=== PATIENT | female | born 2000 | race Hispanic/Latino ===

== ENCOUNTER 2019-12-03 22:01 | Emergency (ER) | payer OTHER ==
[~2019-12-03] VITALS: Ht 152.4 cm; Wt 51.5 kg
[2019-12-03] MEDS ORDERED: HUMA75IN2 SC (22:08)
[2019-12-03] MEDS ORDERED: INSURSD SC (22:08)
[2019-12-03 22:32] LABS: URINE PREG TEST NEGATIVE (NEGATIVE)
[2019-12-04] MEDS ORDERED: PYRI1TAB5 PO (00:51)
[2019-12-04] MEDS ORDERED: CIPR-249 PO (00:51)
[2019-12-04 00:56] VITALS: BP 100/61
[2019-12-04] MEDS ORDERED: PHENAZOPYRIDINE 100 MG TAB PO ONE (01:00)
[2019-12-04] MEDS ORDERED: CIPROFLOXACIN 500MG TABLET PO ONE (01:00)
== END 2019-12-04 00:58 | disposition home or self-care (01) ==
LOC: M ED 22:01
DX: N39.0 Urinary tract infection, site not specified (principal); E10.65 Type 1 diabetes mellitus with hyperglycemia; Z79.899 Other long term (current) drug therapy

== ENCOUNTER 2020-02-25 09:32 | Emergency (ER) | payer OTHER ==
[~2020-02-25] VITALS: Ht 152.4 cm; Wt 51.3 kg
[~2020-02-25 09:32] MED LIST: CIPR-249 PO; HUMA75IN2 SC; INSURSD SC; PYRI1TAB5 PO
[2020-02-25 11:10] LABS: BASO # 0.1 10^3/uL (0.0-0.2); BASO % 0.8 % (0.0-1.0); EOS # 0.1 10^3/uL (0.0-0.5); EOS % 0.5 % (0.0-3.0); HEMATOCRIT 39.7 % (36.0-47.0); HEMOGLOBIN 13.6 g/dl (12.0-15.5); LYMPH # 2.4 10^3/uL (1.5-5.0); LYMPH % 24.2 % (24.0-44.0); MEAN CORPUSCULAR HEMOGLOBIN 31.4 pg (27.0-33.0); MEAN CORPUSCULAR HGB CONC 34.3 g/dl (32.0-36.5); MEAN CORPUSCULAR VOLUME 91.7 fl (80.0-96.0); MONO # 0.5 10^3/uL (0.0-0.8); MONO % 4.6 % (0.0-5.0); NEUTROPHILS # 6.9 10^3/uL (1.5-8.5); NEUTROPHILS % 69.7 % (36.0-66.0); PLATELET COUNT, AUTOMATED 464 10^3/uL (150-450); RED BLOOD COUNT 4.33 10^6/uL (4.00-5.40); WHITE BLOOD COUNT 9.9 10^3/uL (4.0-10.0)
[2020-02-25 11:23] LABS: BILIRUBIN, URINE MANUAL OBSCURED (NEGATIVE); GLUCOSE, URINE (UA) MANUAL NEGATIVE (NEGATIVE); KETONE, URINE MANUAL OBSCURED mg/dL (NEGATIVE); UROBILINOGEN, URINE MANUAL OBSCURED mg/dl (NORMAL)
[2020-02-25 11:29] LABS: BLOOD UREA NITROGEN 7 MG/DL (7-18); CARBON DIOXIDE LEVEL 27 MEQ/L (21-32); CHLORIDE LEVEL 106 MEQ/L (98-107); CREATININE FOR GFR 0.64 MG/DL (0.55-1.30); GLOMERULAR FILTRATION RATE > 60.0 (>60); GLUCOSE, FASTING 62 MG/DL (70-100); POTASSIUM SERUM 3.7 MEQ/L (3.5-5.1); SODIUM LEVEL 138 MEQ/L (136-145)
[2020-02-25 11:31] LABS: SQUAMOUS EPITHELIAL CELL URINE MOD AMOUNT /hpf (SMALL AMT)
[2020-02-25 11:32] LABS: HCG, SERUM QUALITATIVE NEGATIVE (NEGATIVE)
[2020-02-25 11:32] LABS: BACTERIA, URINE MOD AMOUNT; HYALINE CAST, URINE NONE SEEN /lpf (0-1); MUCUS, URINE SMALL AMOUNT (NEGATIVE); RENAL EPITHELIAL CELLS, URINE SMALL AMOUNT /hpf
[2020-02-25] MEDS ORDERED: PYRI1TAB5 PO (12:55)
[2020-02-25] MEDS ORDERED: MACR100C43 PO (12:55)
[2020-02-25] MEDS ORDERED: CLOTCRE3 TOP (13:03)
[2020-02-25 13:34] VITALS: BP 125/69
== END 2020-02-25 13:38 | disposition home or self-care (01) ==
LOC: M ED 09:32
DX: N39.0 Urinary tract infection, site not specified (principal); N76.0 Acute vaginitis; E11.9 Type 2 diabetes mellitus without complications; Z87.440 Personal history of urinary (tract) infections; Z79.4 Long term (current) use of insulin

== ENCOUNTER 2020-07-27 14:44 | Emergency (ER) | payer OTHER ==
[~2020-07-27] VITALS: Ht 160 cm; Wt 48.8 kg
[~2020-07-27 14:44] MED LIST changes: +CLOTCRE3 TOP; +MACR100C43 PO
[2020-07-27 15:21] VITALS: BP 110/68
[2020-07-27] MEDS ORDERED: NS 1,000 ML IV ONE (19:45)
[2020-07-27 20:15] LABS: VENOUS BASE EXCESS 0.6 (-2.0-2.0); VENOUS HCO3 26.7 MEQ/L (23.0-27.0); VENOUS PARTIAL PRESSURE CO2 48.3 mmHg (38.0-50.0); VENOUS PARTIAL PRESSURE O2 25.8 mmHg (30.0-50.0); VENOUS PH 7.361 UNITS (7.330-7.430); VENOUS STANDARD HCO3 23.8 MEQ/L; VENOUS TOTAL CO2 28.2 MEQ/L (24.0-28.0)
[2020-07-27 20:20] LABS: HEMATOCRIT 42.6 % (36.0-47.0); HEMOGLOBIN 14.1 g/dl (12.0-15.5); MEAN CORPUSCULAR HEMOGLOBIN 30.6 pg (27.0-33.0); MEAN CORPUSCULAR HGB CONC 33.1 g/dl (32.0-36.5); MEAN CORPUSCULAR VOLUME 92.4 fl (80.0-96.0); PLATELET COUNT, AUTOMATED 344 10^3/uL (150-450); RED BLOOD COUNT 4.61 10^6/uL (4.00-5.40); WHITE BLOOD COUNT 5.6 10^3/uL (4.0-10.0)
[2020-07-27 20:35] LABS: ATYPICAL LYMPH 4 % (0-5); LYMPHOCYTES 43 % (16-44); MONOCYTES 5 % (0-5); NEUTROPHILS 48 % (28-66)
[2020-07-27 20:36] LABS: PLATELET ESTIMATE NORMAL (NORMAL)
[2020-07-27 20:40] LABS: ACETONE/KETONE 7.06 MG/DL (<2.81); ALBUMIN 3.9 GM/DL (3.2-5.2); ALT/SGPT 20 U/L (12-78); BILIRUBIN,DIRECT 0.1 MG/DL (0.0-0.2); BILIRUBIN,TOTAL 0.4 MG/DL (0.2-1.0); TOTAL PROTEIN 7.7 GM/DL (6.4-8.2)
[2020-07-27 20:43] LABS: HCG, SERUM QUALITATIVE NEGATIVE (NEGATIVE)
== END 2020-07-27 23:05 | disposition home or self-care (01) ==
LOC: M ED 14:44
DX: U07.1 COVID-19 (principal); E10.9 Type 1 diabetes mellitus without complications

== ENCOUNTER 2020-11-16 13:44 | Emergency (ER) | payer OTHER ==
[~2020-11-16] VITALS: Ht 149.9 cm; Wt 43.1 kg
[2020-11-16 13:44] VITALS: BP 105/63
[2020-11-16] MEDS ORDERED: LANTINJ4 (14:02)
== END 2020-11-16 15:14 | disposition left against medical advice (07) ==
LOC: M ED 13:44
DX: Z53.21 Procedure and treatment not carried out due to patient leaving prior to being seen by health care provider (principal)

== ENCOUNTER 2021-08-28 17:51 | Inpatient (IN) | payer OTHER ==
[~2021-08-28] VITALS: Ht 152.4 cm; Wt 46.4 kg
[~2021-08-28 17:51] MED LIST changes: +LANTINJ4
[2021-08-28] MEDS ORDERED: cefTRIAXone SOD 2 GM in D5W MINI-BAG PLUS 50 ML IV ONE (18:05)
[2021-08-28] MEDS ORDERED: NS 1,340 ML in IV 1 EA IV ONE (18:05)
[2021-08-28 18:45] LABS: VENOUS BASE EXCESS -19.8 (-2.0-2.0); VENOUS HCO3 8.4 MEQ/L (23.0-27.0); VENOUS O2 SATURATION 65.7 % (60.0-80.0); VENOUS PARTIAL PRESSURE CO2 27.6 mmHg (38.0-50.0); VENOUS PARTIAL PRESSURE O2 39.4 mmHg (30.0-50.0); VENOUS PH 7.102 UNITS (7.330-7.430); VENOUS STANDARD HCO3 9.7 MEQ/L; VENOUS TOTAL CO2 9.3 MEQ/L (24.0-28.0)
[2021-08-28 18:48] LABS: BASO # 0.1 10^3/uL (0.0-0.2); BASO % 0.5 % (0.0-1.0); HEMATOCRIT 38.2 % (36.0-47.0); HEMOGLOBIN 12.6 g/dl (12.0-15.5); LYMPH % 6.9 % (24.0-44.0); MEAN CORPUSCULAR VOLUME 94.1 fl (80.0-96.0); MONO # 0.5 10^3/uL (0.0-0.8); NEUTROPHILS # 13.4 10^3/uL (1.5-8.5); NEUTROPHILS % 89.1 % (36.0-66.0); PLATELET COUNT, AUTOMATED 753 10^3/uL (150-450); RED BLOOD COUNT 4.06 10^6/uL (4.00-5.40); WHITE BLOOD COUNT 15.1 10^3/uL (4.0-10.0)
[2021-08-28 19:12] LABS: ALBUMIN 3.6 GM/DL (3.2-5.2); ALT/SGPT 10 U/L (12-78); BILIRUBIN,DIRECT 0.2 MG/DL (0.0-0.2); BILIRUBIN,TOTAL 0.5 MG/DL (0.2-1.0); BLOOD UREA NITROGEN 8 MG/DL (7-18); CARBON DIOXIDE LEVEL 9 MEQ/L (21-32); CHLORIDE LEVEL 106 MEQ/L (98-107); CREATININE FOR GFR 0.84 MG/DL (0.55-1.30); GLOMERULAR FILTRATION RATE > 60.0 (>60); GLUCOSE, FASTING 330 MG/DL (70-100); LIPASE 62 U/L (73-393); MAGNESIUM LEVEL 1.8 MG/DL (1.8-2.4); PHOSPHORUS LEVEL 3.1 MG/DL (2.5-4.9); POTASSIUM SERUM 5.6 MEQ/L (3.5-5.1); SODIUM LEVEL 132 MEQ/L (136-145); TOTAL PROTEIN 8.5 GM/DL (6.4-8.2)
[2021-08-28 19:14] LABS: ACETONE/KETONE > 46.00 MG/DL (<2.81); HCG, SERUM QUALITATIVE NEGATIVE (NEGATIVE); OSMOLALITY SERUM 297 MOSM/KG (275-295)
[2021-08-28] MEDS ORDERED: INSULIN REGULAR IN 0.9 % NACL 100 UNIT in IV 1 EA IV SCH ×4 (19:25→22:15)
[2021-08-28] MEDS ORDERED: INSULIN IV RATE CHANGE DOCUMENTATION ML/HR XX SCH (19:25)
[2021-08-28 19:34] LABS: HEMOGLOBIN A1c 9.7 %
[2021-08-28] MEDS ORDERED: lantus (19:42)
[2021-08-28] MEDS ORDERED: INSUHUMDS SC (19:42)
[2021-08-28] MEDS ORDERED: LANTINJ4 SC (19:42)
[2021-08-28] MEDS ORDERED: HOME MED LIST COMPLETE! XX SCH (19:45)
[2021-08-28] MEDS ORDERED: NS 1,000 ML IV ONE (20:15)
[2021-08-28] MEDS: HEPARIN SOD (PORCINE) 5000UNITS/ML 1ML VIAL/SYRINGE SQ SCH (20:58)
[2021-08-28] MEDS ORDERED: NS 1,000 ML IV SCH (21:15)
[2021-08-28 22:00] VITALS: BP 113/75
[2021-08-28 22:34] LABS: BLOOD UREA NITROGEN 6 MG/DL (7-18); CALCIUM LEVEL 7.7 MG/DL (8.5-10.1); CARBON DIOXIDE LEVEL 9 MEQ/L (21-32); CHLORIDE LEVEL 115 MEQ/L (98-107); CREATININE FOR GFR 0.73 MG/DL (0.55-1.30); GLOMERULAR FILTRATION RATE > 60.0 (>60); GLUCOSE, FASTING 220 MG/DL (70-100); POTASSIUM SERUM 4.5 MEQ/L (3.5-5.1); SODIUM LEVEL 139 MEQ/L (136-145)
[2021-08-28 23:00] VITALS: BP 114/69
[2021-08-28] MEDS: INSULIN IV RATE CHANGE DOCUMENTATION ML/HR XX SCH (23:06)
[2021-08-28] MEDS ORDERED: KCL 20MEQ IN D5/0.45NS 1000ML 1,000 ML IV SCH (23:15)
[2021-08-29] VITALS (13 sets, daily range): BP systolic 90–105; BP diastolic 51–67
[2021-08-29] MEDS: INSULIN IV RATE CHANGE DOCUMENTATION ML/HR XX SCH ×2 (02:05→05:09)
[2021-08-29 03:49] LABS: VENOUS BASE EXCESS -16.9 (-2.0-2.0); VENOUS HCO3 11.3 MEQ/L (23.0-27.0); VENOUS O2 SATURATION 81.1 % (60.0-80.0); VENOUS PARTIAL PRESSURE CO2 34.7 mmHg (38.0-50.0); VENOUS PARTIAL PRESSURE O2 47.4 mmHg (30.0-50.0); VENOUS STANDARD HCO3 11.6 MEQ/L; VENOUS TOTAL CO2 12.3 MEQ/L (24.0-28.0)
[2021-08-29 04:16] LABS: BLOOD UREA NITROGEN 5 MG/DL (7-18); CALCIUM LEVEL 8.3 MG/DL (8.5-10.1); CARBON DIOXIDE LEVEL 9 MEQ/L (21-32); CHLORIDE LEVEL 114 MEQ/L (98-107); CREATININE FOR GFR 0.71 MG/DL (0.55-1.30); GLOMERULAR FILTRATION RATE > 60.0 (>60); GLUCOSE, FASTING 171 MG/DL (70-100); POTASSIUM SERUM 4.5 MEQ/L (3.5-5.1); SODIUM LEVEL 138 MEQ/L (136-145)
[2021-08-29 04:24] LABS: BLOOD UREA NITROGEN 4 MG/DL (7-18); CALCIUM LEVEL 7.9 MG/DL (8.5-10.1); CARBON DIOXIDE LEVEL 14 MEQ/L (21-32); CHLORIDE LEVEL 114 MEQ/L (98-107); CREATININE FOR GFR 0.78 MG/DL (0.55-1.30); GLOMERULAR FILTRATION RATE > 60.0 (>60); GLUCOSE, FASTING 197 MG/DL (70-100); PHOSPHORUS LEVEL 1.4 MG/DL (2.5-4.9); SODIUM LEVEL 136 MEQ/L (136-145)
[2021-08-29] MEDS ORDERED: GLUCAGON INJ 1MG VIAL SC PRN (05:50)
[2021-08-29] MEDS ORDERED: DEXTROSE 50% 50 ML SYRINGE IV PRN (05:50)
[2021-08-29] MEDS ORDERED: GLUCOSE 4GM CHEW TABLET PO PRN (05:50)
[2021-08-29] MEDS ORDERED: KCL 20MEQ IN D5/.45NACL 1000ML As Ordered ONE (05:58)
[2021-08-29] MEDS ORDERED: NS 0.45% 1,000 ML IV SCH (06:10)
[2021-08-29] MEDS ORDERED: POTASSIUM PHOSPHATE INJ 30 MMOL in D5W 500 ML IV ONE (07:00)
[2021-08-29] MEDS ORDERED: INSULIN LISPRO (NovoLOG) PER UNIT SC SCH ×7 (07:30→21:00)
[2021-08-29] MEDS: INSULIN LISPRO (NovoLOG) PER UNIT SC SCH ×3 (07:30→18:13)
[2021-08-29 08:05] LABS: BLOOD UREA NITROGEN 2 MG/DL (7-18); CALCIUM LEVEL 8.7 MG/DL (8.5-10.1); CARBON DIOXIDE LEVEL 14 MEQ/L (21-32); CHLORIDE LEVEL 117 MEQ/L (98-107); CREATININE FOR GFR 0.63 MG/DL (0.55-1.30); GLOMERULAR FILTRATION RATE > 60.0 (>60); GLUCOSE, FASTING 86 MG/DL (70-100); PHOSPHORUS LEVEL 1.5 MG/DL (2.5-4.9); POTASSIUM SERUM 3.9 MEQ/L (3.5-5.1); SODIUM LEVEL 139 MEQ/L (136-145)
[2021-08-29] MEDS: ESCITALOPRAM OXALATE 5MG TABLET (LEXAPRO) PO SCH (08:40)
[2021-08-29] MEDS: HEPARIN SOD (PORCINE) 5000UNITS/ML 1ML VIAL/SYRINGE SQ SCH ×2 (08:40→20:48)
[2021-08-29] MEDS ORDERED: PANTOPRAZOLE 40MG VIAL IV SCH (09:00)
[2021-08-29] MEDS ORDERED: KCL 40MEQ IN D5/0.45NS 1000ML 1,000 ML IV SCH (09:00)
[2021-08-29] MEDS ORDERED: NS 500 ML IV ONE (09:00)
[2021-08-29] MEDS: ACETAMINOPHEN TAB 650MG DOSE (2X325MG) PO PRN ×2 (09:16→20:47)
[2021-08-29] MEDS: LEVEMIR (INSULIN DETEMIR) 1 UNITS/0.01ML SC SCH ×2 (10:10→20:48)
[2021-08-29] MEDS ORDERED: NEUTRA-PHOS 1.5 GM PACKET PO SCH (12:30)
[2021-08-29 13:39] LABS: VENOUS BASE EXCESS -12.6 (-2.0-2.0); VENOUS PARTIAL PRESSURE CO2 29.6 mmHg (38.0-50.0); VENOUS PH 7.262 UNITS (7.330-7.430); VENOUS STANDARD HCO3 14.7 MEQ/L
[2021-08-29 14:14] LABS: BLOOD UREA NITROGEN 2 MG/DL (7-18); CALCIUM LEVEL 7.9 MG/DL (8.5-10.1); CARBON DIOXIDE LEVEL 16 MEQ/L (21-32); CHLORIDE LEVEL 109 MEQ/L (98-107); CREATININE FOR GFR 0.65 MG/DL (0.55-1.30); GLOMERULAR FILTRATION RATE > 60.0 (>60); GLUCOSE, FASTING 317 MG/DL (70-100); PHOSPHORUS LEVEL 3.3 MG/DL (2.5-4.9); POTASSIUM SERUM 4.6 MEQ/L (3.5-5.1); SODIUM LEVEL 133 MEQ/L (136-145)
[2021-08-29] MEDS ORDERED: METOCLOPRAMIDE INJ 10MG/2ML VIAL (J2765 PER 1) IV ONE (20:50)
[2021-08-29] MEDS ORDERED: KETOROLAC 30 MG/ML 1ML VIAL IV ONE (20:50)
[2021-08-30 04:00] VITALS: BP 107/62
[2021-08-30 06:10] LABS: HEMATOCRIT 33.3 % (36.0-47.0); HEMOGLOBIN 11.4 g/dl (12.0-15.5); MEAN CORPUSCULAR HEMOGLOBIN 31.1 pg (27.0-33.0); MEAN CORPUSCULAR HGB CONC 34.2 g/dl (32.0-36.5); MEAN CORPUSCULAR VOLUME 90.7 fl (80.0-96.0); PLATELET COUNT, AUTOMATED 602 10^3/uL (150-450); RED BLOOD COUNT 3.67 10^6/uL (4.00-5.40); WHITE BLOOD COUNT 6.6 10^3/uL (4.0-10.0)
[2021-08-30 06:40] LABS: BLOOD UREA NITROGEN 4 MG/DL (7-18); CALCIUM LEVEL 9.5 MG/DL (8.5-10.1); CARBON DIOXIDE LEVEL 25 MEQ/L (21-32); CHLORIDE LEVEL 109 MEQ/L (98-107); CREATININE FOR GFR 0.46 MG/DL (0.55-1.30); GLOMERULAR FILTRATION RATE > 60.0 (>60); GLUCOSE, FASTING 61 MG/DL (70-100); PHOSPHORUS LEVEL 2.6 MG/DL (2.5-4.9); POTASSIUM SERUM 3.8 MEQ/L (3.5-5.1); SODIUM LEVEL 141 MEQ/L (136-145)
[2021-08-30 08:07] VITALS: BP 99/54
[2021-08-30] MEDS: ESCITALOPRAM OXALATE 5MG TABLET (LEXAPRO) PO SCH (08:23)
[2021-08-30] MEDS: HEPARIN SOD (PORCINE) 5000UNITS/ML 1ML VIAL/SYRINGE SQ SCH (08:23)
[2021-08-30] MEDS: LEVEMIR (INSULIN DETEMIR) 1 UNITS/0.01ML SC SCH (08:24)
[2021-08-30] MEDS: INSULIN LISPRO (NovoLOG) PER UNIT SC SCH ×2 (08:24→12:00)
[2021-08-30] MEDS ORDERED: PANTOPRAZOLE 40MG TAB (PROTONIX) PO SCH (09:00)
[2021-08-30 11:57] VITALS: BP 103/55
== END 2021-08-30 13:20 | disposition home or self-care (01) | DRG 639 ==
LOC: EDBD 17:51 → M ED 17:51 → M ED INP 20:11 → M ICU 22:00 → M PCU 08-30 01:28
PROVIDERS: ADMIT Internal Medicine Pulmonary Disease; ATTEND Family Medicine
DX: E10.10 Type 1 diabetes mellitus with ketoacidosis without coma (principal); F32.A Depression, unspecified; N91.1 Secondary amenorrhea; B34.8 Other viral infections of unspecified site; F41.9 Anxiety disorder, unspecified; E83.39 Other disorders of phosphorus metabolism; Z79.4 Long term (current) use of insulin; Z91.411 Personal history of adult psychological abuse

== ENCOUNTER 2022-01-17 09:10 | Observation (INO) | payer OTHER ==
[~2022-01-17] VITALS: Ht 149.9 cm; Wt 46.2 kg
[~2022-01-17 09:10] MED LIST changes: +INSUHUMDS SC; +LANTINJ4 SC; +lantus
[2022-01-17 09:57] LABS: VENOUS BASE EXCESS -14.5 (-2.0-2.0); VENOUS HCO3 13.1 MEQ/L (23.0-27.0); VENOUS O2 SATURATION 88.3 % (60.0-80.0); VENOUS PARTIAL PRESSURE CO2 36.9 mmHg (38.0-50.0); VENOUS PARTIAL PRESSURE O2 60.7 mmHg (30.0-50.0); VENOUS PH 7.169 UNITS (7.330-7.430); VENOUS STANDARD HCO3 13.4 MEQ/L; VENOUS TOTAL CO2 14.3 MEQ/L (24.0-28.0)
[2022-01-17 10:02] LABS: BASO # 0.1 10^3/uL (0.0-0.2); BASO % 0.7 % (0.0-1.0); EOS % 0.1 % (0.0-3.0); HEMATOCRIT 42.8 % (36.0-47.0); HEMOGLOBIN 13.9 g/dl (12.0-15.5); LYMPH # 1.2 10^3/uL (1.5-5.0); LYMPH % 12.6 % (24.0-44.0); MEAN CORPUSCULAR HEMOGLOBIN 31.9 pg (27.0-33.0); MEAN CORPUSCULAR HGB CONC 32.5 g/dl (32.0-36.5); MEAN CORPUSCULAR VOLUME 98.2 fl (80.0-96.0); MONO # 0.3 10^3/uL (0.0-0.8); MONO % 3.1 % (2.0-8.0); NEUTROPHILS % 83.2 % (36.0-66.0); PLATELET COUNT, AUTOMATED 575 10^3/uL (150-450); RED BLOOD COUNT 4.36 10^6/uL (4.00-5.40); WHITE BLOOD COUNT 9.6 10^3/uL (4.0-10.0)
[2022-01-17 10:22] LABS: HEMOGLOBIN A1c 11.1 %
[2022-01-17] MEDS ORDERED: NS 1,000 ML IV ONE ×2 (10:25→11:15)
[2022-01-17 10:50] LABS: ACETONE/KETONE 39.49 MG/DL (<2.81); ALBUMIN 3.9 GM/DL (3.2-5.2); ALT/SGPT 30 U/L (12-78); BILIRUBIN,DIRECT 0.1 MG/DL (0.0-0.2); BILIRUBIN,TOTAL 0.6 MG/DL (0.2-1.0); LIPASE 68 U/L (73-393)
[2022-01-17 11:06] LABS: OSMOLALITY SERUM 296 MOSM/KG (275-295)
[2022-01-17] MEDS ORDERED: D5W/0.45% SODIUM CHLORIDE 1,000 ML IV SCH (11:35)
[2022-01-17 12:00] LABS: CK-MB VALUE MASS < 1.0 NG/ML (<3.6); CPK CREATINE PHOSPHOKINASE 64 U/L (26-192); MB/CK RELATIVE INDEX 1.56 (< OR =4)
[2022-01-17] MEDS: D5W/0.45% SODIUM CHLORIDE 1,000 ML IV SCH ×2 (12:18→17:36)
[2022-01-17 12:28] LABS: BLOOD UREA NITROGEN 10 MG/DL (7-18); CALCIUM LEVEL 9.7 MG/DL (8.5-10.1); CARBON DIOXIDE LEVEL 11 MEQ/L (21-32); CHLORIDE LEVEL 104 MEQ/L (98-107); CREATININE FOR GFR 1.07 MG/DL (0.55-1.30); ETHYL ALCOHOL (ETHANOL) < 0.003 % (0.000-0.010); GLOMERULAR FILTRATION RATE > 60.0 (>60); GLUCOSE, FASTING 221 MG/DL (70-100); POTASSIUM SERUM 4.1 MEQ/L (3.5-5.1); SODIUM LEVEL 134 MEQ/L (136-145)
[2022-01-17 12:37] LABS: HCG, SERUM QUALITATIVE NEGATIVE (NEGATIVE)
[2022-01-17 13:30] LABS: VENOUS BASE EXCESS -6.8 (-2.0-2.0); VENOUS HCO3 19.3 MEQ/L (23.0-27.0); VENOUS O2 SATURATION 78.4 % (60.0-80.0); VENOUS PARTIAL PRESSURE O2 41.3 mmHg (30.0-50.0); VENOUS PH 7.291 UNITS (7.330-7.430); VENOUS STANDARD HCO3 18.6 MEQ/L; VENOUS TOTAL CO2 20.6 MEQ/L (24.0-28.0)
[2022-01-17 14:13] LABS: BLOOD UREA NITROGEN 8 MG/DL (7-18); CALCIUM LEVEL 8.4 MG/DL (8.5-10.1); CARBON DIOXIDE LEVEL 21 MEQ/L (21-32); CHLORIDE LEVEL 109 MEQ/L (98-107); GLOMERULAR FILTRATION RATE > 60.0 (>60); GLUCOSE, FASTING 108 MG/DL (70-100); POTASSIUM SERUM 3.8 MEQ/L (3.5-5.1); SODIUM LEVEL 137 MEQ/L (136-145)
[2022-01-17 15:23] LABS: AMPHETAMINES LEVEL URINE NEGATIVE (NEGATIVE); BARBITURATES URINE NEGATIVE (NEGATIVE); BENZODIAZEPINES URINE NEGATIVE (NEGATIVE); CANNABINOIDS URINE NEGATIVE (NEGATIVE); COCAINE METABOLITE URINE NEGATIVE (NEGATIVE); METHADONE URINE NEGATIVE (NEGATIVE); OPIATES URINE NEGATIVE (NEGATIVE); PHENCYCLIDINE URINE NEGATIVE (NEGATIVE)
[2022-01-17] MEDS ORDERED: GLUCAGON INJ 1MG VIAL SC PRN (17:10)
[2022-01-17] MEDS ORDERED: ACETAMINOPHEN TAB 650MG DOSE (2X325MG) PO PRN (17:10)
[2022-01-17] MEDS ORDERED: GLUCOSE 4GM CHEW TABLET PO PRN (17:10)
[2022-01-17] MEDS ORDERED: HOME MED LIST COMPLETE! XX SCH (17:45)
[2022-01-17] MEDS ORDERED: D5W/0.9% SODIUM CHLORIDE 1,000 ML IV SCH (18:00)
[2022-01-17] MEDS: INSULIN LISPRO (NovoLOG) PER UNIT SC SCH ×2 (18:17→21:20)
[2022-01-18] MEDS: INSULIN LISPRO (NovoLOG) PER UNIT SC SCH ×4 (03:43→21:00)
[2022-01-18] MEDS ORDERED: INSULIN LISPRO (NovoLOG) PER UNIT SC STA (04:21)
[2022-01-18] MEDS ORDERED: LR 1,000 ML IV ONE (04:25)
[2022-01-18 06:01] LABS: HEMATOCRIT 34.1 % (36.0-47.0); MEAN CORPUSCULAR HGB CONC 32.3 g/dl (32.0-36.5); MEAN CORPUSCULAR VOLUME 99.1 fl (80.0-96.0); RED BLOOD COUNT 3.44 10^6/uL (4.00-5.40); WHITE BLOOD COUNT 8.9 10^3/uL (4.0-10.0)
[2022-01-18 06:10] LABS: PLATELET COUNT, AUTOMATED 424 10^3/uL (150-450)
[2022-01-18 07:01] LABS: ALBUMIN 2.8 GM/DL (3.2-5.2); ALT/SGPT 45 U/L (12-78); BILIRUBIN,TOTAL 0.4 MG/DL (0.2-1.0); BLOOD UREA NITROGEN 6 MG/DL (7-18); CALCIUM LEVEL 8.1 MG/DL (8.5-10.1); CARBON DIOXIDE LEVEL 12 MEQ/L (21-32); CHLORIDE LEVEL 110 MEQ/L (98-107); CREATININE FOR GFR 0.94 MG/DL (0.55-1.30); GLOMERULAR FILTRATION RATE > 60.0 (>60); GLUCOSE, FASTING 206 MG/DL (70-100); MAGNESIUM LEVEL 1.7 MG/DL (1.8-2.4); POTASSIUM SERUM 3.6 MEQ/L (3.5-5.1); SODIUM LEVEL 138 MEQ/L (136-145); TOTAL PROTEIN 5.8 GM/DL (6.4-8.2)
[2022-01-18] MEDS: LEVEMIR (INSULIN DETEMIR) 1 UNITS/0.01ML SC ONE (08:20)
[2022-01-18] MEDS ORDERED: MAG SULF 1GM/100ML (MAG RUN) 1 GM in IV 1 EA IV ONE (09:00)
[2022-01-18] MEDS: NS 0.45% 1,000 ML IV SCH ×2 (09:17→17:28)
[2022-01-18 10:59] LABS: BLOOD UREA NITROGEN 4 MG/DL (7-18); CALCIUM LEVEL 8.4 MG/DL (8.5-10.1); CARBON DIOXIDE LEVEL 18 MEQ/L (21-32); CHLORIDE LEVEL 104 MEQ/L (98-107); CREATININE FOR GFR 0.46 MG/DL (0.55-1.30); GLOMERULAR FILTRATION RATE > 60.0 (>60); GLUCOSE, FASTING 271 MG/DL (70-100); POTASSIUM SERUM 4.1 MEQ/L (3.5-5.1); SODIUM LEVEL 135 MEQ/L (136-145)
[2022-01-18] MEDS ORDERED: LEVEMIR (INSULIN DETEMIR) 1 UNITS/0.01ML SC ONE (11:25)
[2022-01-18 13:49] VITALS: BP 110/56
[2022-01-18] MEDS ORDERED: LANTINJ4 SC (13:54)
[2022-01-18] MEDS ORDERED: HUMA100I5 SC (13:54)
[2022-01-18 14:54] LABS: BLOOD UREA NITROGEN 5 MG/DL (7-18); CALCIUM LEVEL 8.5 MG/DL (8.5-10.1); CARBON DIOXIDE LEVEL 11 MEQ/L (21-32); CHLORIDE LEVEL 105 MEQ/L (98-107); CREATININE FOR GFR 0.81 MG/DL (0.55-1.30); GLOMERULAR FILTRATION RATE > 60.0 (>60); GLUCOSE, FASTING 314 MG/DL (70-100); POTASSIUM SERUM 3.7 MEQ/L (3.5-5.1); SODIUM LEVEL 133 MEQ/L (136-145)
[2022-01-18 15:05] VITALS: BP 101/66
[2022-01-18] MEDS ORDERED: NS 1,000 ML IV ONE (15:20)
[2022-01-18 17:46] LABS: VENOUS BASE EXCESS -9.8 (-2.0-2.0); VENOUS HCO3 15.6 MEQ/L (23.0-27.0); VENOUS O2 SATURATION 96.5 % (60.0-80.0); VENOUS PARTIAL PRESSURE CO2 32.5 mmHg (38.0-50.0); VENOUS PARTIAL PRESSURE O2 87.5 mmHg (30.0-50.0); VENOUS PH 7.298 UNITS (7.330-7.430); VENOUS STANDARD HCO3 16.7 MEQ/L; VENOUS TOTAL CO2 16.6 MEQ/L (24.0-28.0)
[2022-01-18 18:21] LABS: BLOOD UREA NITROGEN 5 MG/DL (7-18); CARBON DIOXIDE LEVEL 17 MEQ/L (21-32); CHLORIDE LEVEL 110 MEQ/L (98-107); CREATININE FOR GFR 0.53 MG/DL (0.55-1.30); GLOMERULAR FILTRATION RATE > 60.0 (>60); GLUCOSE, FASTING 92 MG/DL (70-100); POTASSIUM SERUM 4.1 MEQ/L (3.5-5.1); SODIUM LEVEL 139 MEQ/L (136-145)
[2022-01-18 18:29] LABS: ACETONE/KETONE 23.58 MG/DL (<2.81); ALT/SGPT 42 U/L (12-78); BILIRUBIN,TOTAL 0.5 MG/DL (0.2-1.0); BLOOD UREA NITROGEN 5 MG/DL (7-18); CARBON DIOXIDE LEVEL 17 MEQ/L (21-32); CHLORIDE LEVEL 110 MEQ/L (98-107); CREATININE FOR GFR 0.56 MG/DL (0.55-1.30); GLOMERULAR FILTRATION RATE > 60.0 (>60); GLUCOSE, FASTING 95 MG/DL (70-100); MAGNESIUM LEVEL 2.1 MG/DL (1.8-2.4); POTASSIUM SERUM 4.2 MEQ/L (3.5-5.1); SODIUM LEVEL 139 MEQ/L (136-145); TOTAL PROTEIN 6.1 GM/DL (6.4-8.2)
[2022-01-18] MEDS: DEXTROSE 50% 50 ML SYRINGE IV PRN ×2 (20:38→20:39)
[2022-01-18] MEDS ORDERED: LEVEMIR (INSULIN DETEMIR) 1 UNITS/0.01ML SC SCH ×2 (21:00)
[2022-01-18 21:33] LABS: BEDSIDE GLUCOSE CONFIRMATION 237 MG/DL (LESS THAN 200)
[2022-01-18 22:00] VITALS: BP 97/60
[2022-01-18] MEDS: CALCIUM CARBONATE 500 MG CHEW U/D PO PRN (22:11)
[2022-01-18 23:00] LABS: BLOOD UREA NITROGEN 4 MG/DL (7-18); CARBON DIOXIDE LEVEL 18 MEQ/L (21-32); CHLORIDE LEVEL 106 MEQ/L (98-107); CREATININE FOR GFR 0.61 MG/DL (0.55-1.30); GLOMERULAR FILTRATION RATE > 60.0 (>60); POTASSIUM SERUM 3.5 MEQ/L (3.5-5.1); SODIUM LEVEL 136 MEQ/L (136-145)
[2022-01-18 23:10] LABS: GLUCOSE, FASTING 237 MG/DL (70-100)
[2022-01-19] MEDS: NS 0.45% 1,000 ML IV SCH ×2 (03:09→13:33)
[2022-01-19 06:00] VITALS: BP 103/67
[2022-01-19 06:11] LABS: VENOUS BASE EXCESS -5.8 (-2.0-2.0); VENOUS HCO3 19.4 MEQ/L (23.0-27.0); VENOUS O2 SATURATION 97.8 % (60.0-80.0); VENOUS PARTIAL PRESSURE CO2 37.1 mmHg (38.0-50.0); VENOUS PARTIAL PRESSURE O2 100.4 mmHg (30.0-50.0); VENOUS PH 7.336 UNITS (7.330-7.430); VENOUS STANDARD HCO3 19.7 MEQ/L; VENOUS TOTAL CO2 20.5 MEQ/L (24.0-28.0)
[2022-01-19 06:17] LABS: BASO % 0.9 % (0.0-1.0); EOS # 0.1 10^3/uL (0.0-0.5); EOS % 1.4 % (0.0-3.0); HEMATOCRIT 33.3 % (36.0-47.0); HEMOGLOBIN 10.8 g/dl (12.0-15.5); LYMPH # 1.9 10^3/uL (1.5-5.0); LYMPH % 43.6 % (24.0-44.0); MEAN CORPUSCULAR HEMOGLOBIN 31.4 pg (27.0-33.0); MEAN CORPUSCULAR HGB CONC 32.4 g/dl (32.0-36.5); MEAN CORPUSCULAR VOLUME 96.8 fl (80.0-96.0); MONO # 0.3 10^3/uL (0.0-0.8); MONO % 6.1 % (2.0-8.0); NEUTROPHILS % 47.8 % (36.0-66.0); PLATELET COUNT, AUTOMATED 360 10^3/uL (150-450); RED BLOOD COUNT 3.44 10^6/uL (4.00-5.40); WHITE BLOOD COUNT 4.2 10^3/uL (4.0-10.0)
[2022-01-19 07:01] LABS: ACETONE/KETONE 6.04 MG/DL (<2.81); BLOOD UREA NITROGEN 2 MG/DL (7-18); CALCIUM LEVEL 8.1 MG/DL (8.5-10.1); CARBON DIOXIDE LEVEL 21 MEQ/L (21-32); CHLORIDE LEVEL 110 MEQ/L (98-107); CREATININE FOR GFR 0.44 MG/DL (0.55-1.30); GLOMERULAR FILTRATION RATE > 60.0 (>60); GLUCOSE, FASTING 110 MG/DL (70-100); POTASSIUM SERUM 3.8 MEQ/L (3.5-5.1); SODIUM LEVEL 140 MEQ/L (136-145)
[2022-01-19] MEDS: INSULIN LISPRO (NovoLOG) PER UNIT SC SCH ×4 (07:30→21:00)
[2022-01-19] MEDS: LEVEMIR (INSULIN DETEMIR) 1 UNITS/0.01ML SC SCH (09:13)
[2022-01-19] MEDS: CALCIUM CARBONATE 500 MG CHEW U/D PO PRN (13:35)
[2022-01-19 14:00] VITALS: BP 119/89
[2022-01-19 17:17] LABS: BLOOD UREA NITROGEN 6 MG/DL (7-18); CALCIUM LEVEL 8.7 MG/DL (8.5-10.1); CARBON DIOXIDE LEVEL 25 MEQ/L (21-32); CHLORIDE LEVEL 106 MEQ/L (98-107); CREATININE FOR GFR 0.62 MG/DL (0.55-1.30); GLOMERULAR FILTRATION RATE > 60.0 (>60); GLUCOSE, FASTING 155 MG/DL (70-100); POTASSIUM SERUM 4.1 MEQ/L (3.5-5.1); SODIUM LEVEL 139 MEQ/L (136-145)
[2022-01-19 20:00] VITALS: BP 118/86
[2022-01-19 20:45] VITALS: BP 118/86
[2022-01-20] MEDS: NS 0.45% 1,000 ML IV SCH (00:59)
[2022-01-20 06:00] VITALS: BP 108/78
[2022-01-20] MEDS ORDERED: ONDANSETRON 4MG 2ML VIAL IV PRN (06:00)
[2022-01-20 06:27] LABS: HEMATOCRIT 33.6 % (36.0-47.0); HEMOGLOBIN 11.1 g/dl (12.0-15.5); LYMPH # 1.1 10^3/uL (1.5-5.0); LYMPH % 55.1 % (24.0-44.0); MEAN CORPUSCULAR HEMOGLOBIN 31.8 pg (27.0-33.0); MEAN CORPUSCULAR VOLUME 96.3 fl (80.0-96.0); MONO # 0.1 10^3/uL (0.0-0.8); MONO % 3.1 % (2.0-8.0); NEUTROPHILS % 38.3 % (36.0-66.0); PLATELET COUNT, AUTOMATED 279 10^3/uL (150-450); RED BLOOD COUNT 3.49 10^6/uL (4.00-5.40)
[2022-01-20 06:43] LABS: NEUTROPHILS # 0.8 10^3/uL (1.5-8.5)
[2022-01-20 07:02] LABS: BLOOD UREA NITROGEN 5 MG/DL (7-18); CALCIUM LEVEL 8.5 MG/DL (8.5-10.1); CARBON DIOXIDE LEVEL 23 MEQ/L (21-32); CHLORIDE LEVEL 106 MEQ/L (98-107); GLOMERULAR FILTRATION RATE > 60.0 (>60); GLUCOSE, FASTING 224 MG/DL (70-100); POTASSIUM SERUM 4.2 MEQ/L (3.5-5.1); SODIUM LEVEL 136 MEQ/L (136-145)
[2022-01-20] MEDS: INSULIN LISPRO (NovoLOG) PER UNIT SC SCH ×2 (08:04→12:02)
[2022-01-20] MEDS: LEVEMIR (INSULIN DETEMIR) 1 UNITS/0.01ML SC SCH (08:04)
[2022-01-20] MEDS ORDERED: PEN1MIS21 SC (11:00)
[2022-01-20] MEDS ORDERED: ALCOPAD25 TOP (11:00)
[2022-01-20] MEDS ORDERED: LANC30MI XX (11:00)
[2022-01-20] MEDS ORDERED: GLUC1TES2 XX (11:00)
[2022-01-20] MEDS ORDERED: BLOOKIT21 XX (11:00)
[2022-01-20] MEDS ORDERED: LANTINJ4 SC ×2 (11:02→11:59)
== END 2022-01-20 13:10 | disposition home or self-care (01) ==
LOC: M ED 09:10 → M ED INP 09:11 → ENRESERV 01-18 13:51 → M MSPAV 01-18 15:10
PROVIDERS: ADMIT Family Medicine; ATTEND Internal Medicine Nephrology
DX: E10.10 Type 1 diabetes mellitus with ketoacidosis without coma (principal); E10.649 Type 1 diabetes mellitus with hypoglycemia without coma; E83.42 Hypomagnesemia
CPT/HCPCS: 36415; 71045; 80047; 80048; 80053; 80076; 80307; 81002; 82010; 82077; 82550; 82553; 82803; 82947; 83036; 83605; 83690; 83735; 83930; 84484; 84703; 85025; 85027; 87040; 87486; 87581; 87633; 87798; 93005; 93041; 94760; 96360; 96361; 99285; J3475

== ENCOUNTER 2023-01-25 10:47 | Emergency (ER) | payer OTHER ==
[~2023-01-25] VITALS: Ht 157.5 cm; Wt 53.4 kg
[2023-01-25 10:47] VITALS: TEMP 96.1
[~2023-01-25 10:47] MED LIST changes: +ALCOPAD25 TOP; +BLOOKIT21 XX; +GLUC1TES2 XX; +HUMA100I5 SC; +LANC30MI XX; +PEN-308 SC
[2023-01-25] MEDS ORDERED: NS 1,000 ML IV ONE ×2 (11:10)
[2023-01-25 11:54] LABS: BASO # 0.1 10^3/uL (0.0-0.2); BASO % 1.4 % (0.0-1.0); EOS % 0.4 % (0.0-3.0); HEMATOCRIT 41.8 % (36.0-47.0); HEMOGLOBIN 14.4 g/dl (12.0-15.5); LYMPH % 24.7 % (24.0-44.0); MEAN CORPUSCULAR HEMOGLOBIN 31.6 pg (27.0-33.0); MEAN CORPUSCULAR HGB CONC 34.4 g/dl (32.0-36.5); MEAN CORPUSCULAR VOLUME 91.7 fl (80.0-96.0); MONO # 0.6 10^3/uL (0.0-0.8); NEUTROPHILS # 5.3 10^3/uL (1.5-8.5); NEUTROPHILS % 65.4 % (36.0-66.0); PLATELET COUNT, AUTOMATED 512 10^3/uL (150-450); RED BLOOD COUNT 4.56 10^6/uL (4.00-5.40)
[2023-01-25 11:59] LABS: VENOUS BASE EXCESS -7.5 (-2.0-2.0); VENOUS HCO3 18.3 MMOL/L (23.0-27.0); VENOUS PARTIAL PRESSURE O2 43.8 mmHg (30.0-50.0); VENOUS STANDARD HCO3 18.1 MMOL/L; VENOUS TOTAL CO2 19.4 MMOL/L (24.0-28.0)
[2023-01-25 12:22] LABS: LIPASE 24 U/L (12-53)
[2023-01-25 12:26] LABS: ACETONE/KETONE 1.04 MMOL/L (0.02-0.27)
[2023-01-25 12:30] LABS: ALBUMIN 4.3 G/DL (3.2-5.2); ALKALINE PHOSPHATASE 107 U/L (46-116); ALT/SGPT 18 U/L (7.0-40); AST/SGOT 11 U/L (<34); BILIRUBIN,DIRECT 0.3 MG/DL (<0.4); BILIRUBIN,TOTAL 0.8 MG/DL (0.3-1.2); BLOOD UREA NITROGEN 15 MG/DL (9-23); CALCIUM LEVEL 9.7 MG/DL (8.5-10.1); CARBON DIOXIDE LEVEL 21 MMOL/L (20-31); CHLORIDE LEVEL 102 MMOL/L (98-107); CREATININE FOR GFR 0.57 MG/DL (0.55-1.30); GLOMERULAR FILTRATION RATE > 60.0 (>60); GLUCOSE, FASTING 145 MG/DL (60-100); MAGNESIUM LEVEL 1.8 MG/DL (1.8-2.4); OSMOLALITY SERUM 287 MOSM/KG (275-295); POTASSIUM SERUM 4.3 MMOL/L (3.5-5.1); SODIUM LEVEL 135 MMOL/L (136-145); TOTAL PROTEIN 8.2 G/DL (5.7-8.2)
[2023-01-25 12:31] LABS: HCG, SERUM QUALITATIVE NEGATIVE (NEGATIVE)
[2023-01-25 12:36] VITALS: BP 94/57
[2023-01-25 12:47] VITALS: O2SAT 99
== END 2023-01-25 13:55 | disposition home or self-care (01) ==
LOC: M ED 10:47
DX: E10.9 Type 1 diabetes mellitus without complications (principal); Z79.4 Long term (current) use of insulin; Z79.899 Other long term (current) drug therapy